=== PATIENT | female | born 1980 | race Caucasian/White ===

== ENCOUNTER 2018-07-19 21:24 | Emergency (ER) | payer OTHER ==
[2018-07-19] MEDS ORDERED: DEXAMETHASONE 10 MG/ML VIAL ONE (21:58)
[2018-07-19] MEDS ORDERED: METOCLOPRAMIDE 10 MG/2mL INJ ONE (21:59)
[2018-07-19] MEDS ORDERED: DIPHENHYDRAMINE 50 MG/ML VIAL ONE (21:59)
[2018-07-19] MEDS ORDERED: NA CHLORIDE 0.9% 1,000 ML ONE (21:59)
--- NOTE | 2018-07-19 22:15 | EDPHYS ---
Physician Documentation [facility] Name: Fatou Pugh Age: 38 yrs Sex: Female : 1980 Arrival Date: 07/19/2018 Time: 21:25 Bed Treatment Private MD: ED Physician Nadeem Anderson HPI: 07/19 22:04 This 38 yrs old Female presents to ER via Unassigned with complaints of jr8 Migraine. 22:04 The patient complains of pain to the diffuse. Onset: The symptoms/episode jr8 began/occurred gradually, 1 week(s) ago, and became persistent. Associated signs and symptoms: Pertinent positives: nausea, Photophobia vomiting. Severity of symptoms: At its worst the pain was moderate, in the emergency department the pain is unchanged. Headache History: Denies prior headaches. The symptoms are alleviated by nothing. the symptoms are aggravated by movement, stress. The patient has not experienced similar symptoms in the past. The patient has not recently seen a physician. 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 - Social history:: Smoking status: Patient/guardian denies using tobacco. - Ebola Screening: : No symptoms or risks identified at this time. ROS: 22:04 Constitutional: Negative for fever, chills, and weight loss. jr8 22:04 ENT: Positive for rhinorrhea, sinus congestion, sore throat. 22:04 Abdomen/GI: Positive for nausea and vomiting, diarrhea, Negative for abdominal pain, constipation, abdominal cramps, abdominal distension. 22:04 Neuro: Positive for headache. Exam: 22:04 Constitutional: This is a well developed, well nourished patient who is awake, alert, jr8 and in no acute distress. Eyes: Pupils equal round and reactive to light, extra-ocular motions intact. Lids and lashes normal. Conjunctiva and sclera are non-icteric and not injected. Cornea within normal limits. Periorbital areas with no swelling, redness, or edema. ENT: Nares patent. No nasal discharge, no septal abnormalities noted. Tympanic membranes are normal and external auditory canals are clear. Oropharynx with no redness, swelling, or masses, exudates, or evidence of obstruction, uvula midline. Mucous membranes moist. Neck: Trachea midline, no thyromegaly or masses palpated, and no cervical lymphadenopathy. Supple, full range of motion without nuchal rigidity, or vertebral point tenderness. No Meningismus. Cardiovascular: Regular rate and rhythm with a normal S1 and S2. No gallops, murmurs, or rubs. Normal PMI, no JVD. No pulse deficits. Respiratory: Lungs have equal breath sounds bilaterally, clear to auscultation and percussion. No rales, rhonchi or wheezes noted. No increased work of breathing, no retractions or nasal flaring. Abdomen/GI: Soft, non-tender, with normal bowel sounds. No distension or tympany. No guarding or rebound. No evidence of tenderness throughout. Back: No spinal tenderness. No costovertebral tenderness. Full range of motion. Skin: Warm, dry with normal turgor. Normal color with no rashes, no lesions, and no evidence of cellulitis. MS/ Extremity: Pulses equal, no cyanosis. Neurovascular intact. Full, normal range of motion. Neuro: Awake and alert, GCS 15, oriented to person, place, time, and situation. Cranial nerves II-XII grossly intact. Motor strength 5/5 in all extremities. Sensory grossly intact. Cerebellar exam normal. Normal gait. Vital Signs: 21:40 BP 115 / 73; Pulse 82; Resp 16 S; Temp 98.6(O); Pulse Ox 99% on R/A; Weight 71.67 kg bb (R); Height 5 ft. 0 in. (152.40 cm) (R); Pain 5/10; 07/20 02:26 BP 106 / 73; Pulse 70; Resp 16 S; Temp 98.7(O); Pulse Ox 100% on R/A; bb 07/19 21:40 Body Mass Index 30.86 (71.67 kg, 152.40 cm) bb MDM: 07/19 21:28 Patient medically screened. jr8 22:04 Data reviewed: vital signs, nurses notes. Data interpreted: Pulse oximetry: on room air jr8 is 100 %. Interpretation: normal. Counseling: I had a detailed discussion with the patient and/or guardian regarding: the historical points, exam findings, and any diagnostic results supporting the discharge/admit diagnosis, the need for outpatient follow up, a family practitioner, to return to the emergency department if symptoms worsen or persist or if there are any questions or concerns that arise at home. Response to treatment: the patient's symptoms have markedly improved after treatment, patient is well hydrated. 07/19 21:28 Order name: IV; Complete Time: : jr8 Administered Medications: 21:40 Drug: NS 0.9% 1000 ml Route: IV; Rate: 1000 ml; Site: right antecubital; bb 22:40 Follow up: IV Status: Completed infusion; IV Intake: 1000ml bb 21:40 Drug: Reglan 10 mg Route: IVP; Site: right antecubital; bb 22:31 Follow up: Response: No adverse reaction; Pain is decreased bb 21:42 Drug: Decadron - Dexamethasone 10 mg Route: IVP; Site: right antecubital; bb 22:31 Follow up: Response: No adverse reaction; Pain is decreased bb 22:00 Drug: Benadryl 25 mg Route: IVP; Site: right antecubital; bb 22:31 Follow up: Response: No adverse reaction; Pain is decreased bb Disposition: 07/20 07:55 Co-signature as Attending Physician, Nadeem Anderson MD I agree with the assessment and susy plan of care. Disposition: 07/19/18 22:15 Discharged to Home. Impression: Migraine without aura, intractable, Acute upper respiratory infection, unspecified. - Condition is Stable. - Discharge Instructions: Migraine Headache, Upper Respiratory Infection, Adult. - Prescriptions for Fioricet 50- 325-40 mg Oral tablet - take 2 tablet by ORAL route every 4 hours as needed not to exceed 6 tablets per 24hrs; 20 tablet. Prednisone 20 mg Oral Tablet - take 1 tablet by ORAL route once daily for 5 days; 5 tablet. Tessalon Perles 100 mg Oral Capsule - take 1 capsule by ORAL route every 8 hours As needed; 15 capsule. Zithromax Z- Aleksandr 250 mg Oral Tablet - take 1 tablet by ORAL route as directed for 5 days Day 1 - take two (2) tablets one time. Day 2, 3, 4 , 5 take one (1) tablet once daily.; 6 tablet. - Medication Reconciliation Form, Thank You Letter, Antibiotic Education, Prescription Opioid Use form. - Follow up: Private Physician; When: 2 - 3 days; Reason: Recheck today's complaints, Continuance of care, Re-evaluation by your physician. - Problem is new. - Symptoms have improved. Signatures: Nadeem Anderson MD MD cha Ballard, Brenda RN RN Lee Licea PA PA jr8 Corrections: (The following items were deleted from the chart) 02:27 07/19 22:15 07/19/2018 22:15 Discharged to Home. Impression: Migraine without aura, bb intractable; Acute upper respiratory infection, unspecified. Condition is Stable. Forms are Medication Reconciliation Form, Thank You Letter, Antibiotic Education, Prescription Opioid Use. Follow up: Private Physician; When: 2 - 3 days; Reason: Recheck today's complaints, Continuance of care, Re-evaluation by your physician. Problem is new. Symptoms have improved. jr8
--- NOTE | 2018-07-20 02:28 | ER ---
Nurse's Notes [facility] Name: Fatou Pugh Age: 38 yrs Sex: Female : 1980 Arrival Date: 07/19/2018 Time: 21:25 Bed Treatment Private MD: Diagnosis: Migraine without aura, intractable;Acute upper respiratory infection, unspecified Presentation: 07/19 21:30 Presenting complaint: Patient states: she has been feeling sick for a week now she has bb a headache, stuffy nose, then Sat and Sun she had nausea, vomiting, and diarrhea which went away, she also has a sore throat. Transition of care: patient was not received from another setting of care. Onset of symptoms was July 13, 2018. Risk Assessment: Do you want to hurt yourself or someone else? Patient reports no desire to harm self or others. Initial Sepsis Screen: Does the patient meet any 2 criteria? No. Patient's initial sepsis screen is negative. Does the patient have a suspected source of infection? No. Patient's initial sepsis screen is negative. Care prior to arrival: None. 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 - Social history:: Smoking status: Patient/guardian denies using tobacco. - Ebola Screening: : No symptoms or risks identified at this time. Screenin:30 Abuse screen: Denies threats or abuse. Nutritional screening: No deficits noted. bb Tuberculosis screening: No symptoms or risk factors identified. Fall Risk None identified. Assessment: 21:30 General: Appears in no apparent distress. uncomfortable, Behavior is calm, cooperative. bb General: Reports pt reports she has been sick for a week and now has a headache she can't get rid of. Pain: Complains of pain in headache Pain currently is 5 out of 10 on a pain scale. Neuro: Level of Consciousness is awake, alert, obeys commands, Oriented to person, place, time, situation, Speech is normal. Cardiovascular: No deficits noted. Respiratory: Respiratory effort is even, unlabored, Respiratory pattern is regular. GI: No signs and/or symptoms were reported involving the gastrointestinal system. Derm: Skin is pink, warm \T\ dry. Musculoskeletal: Circulation, motion, and sensation intact. 22:31 Reassessment: Patient is alert, oriented x 3, equal unlabored respirations, skin bb warm/dry/pink. pt states pain has improved now 1/10 Patient states feeling better. 23:47 Reassessment: pt appears to be sleeping, eyes closed, resp unlabored, awaiting ride bb home for discharge. 07/20 01:38 Reassessment: pt appears to be sleeping, eyes closed, resp unlabored awaiting ride home.bb 02:25 Reassessment: Patient is alert, oriented x 3, equal unlabored respirations, skin bb warm/dry/pink. pt verbalized understanding of and agrees to plan of care discharge instructions given pt ambulated with steady gait to exit Patient states feeling better. Vital Signs: 07/19 21:40 BP 115 / 73; Pulse 82; Resp 16 S; Temp 98.6(O); Pulse Ox 99% on R/A; Weight 71.67 kg bb (R); Height 5 ft. 0 in. (152.40 cm) (R); Pain 5/10; 07/20 02:26 BP 106 / 73; Pulse 70; Resp 16 S; Temp 98.7(O); Pulse Ox 100% on R/A; bb 07/19 21:40 Body Mass Index 30.86 (71.67 kg, 152.40 cm) ED Course: 07/19 21:25 Patient arrived in ED. ds1 21:28 Lee Pantoja PA is PHCP. jr8 21:28 Nadeem Anderson MD is Attending Physician. jr8 21:30 Patient has correct armband on for positive identification. Bed in low position. Call bb light in reach. Side rails up X 1. Pulse ox on. NIBP on. Warm blanket given. Pillow given. 21:30 Inserted saline lock: 20 gauge in right antecubital area, using aseptic technique. bb ,using aseptic technique. by Lee TSAI. 22:23 Lucero Garcia, RN is Primary Nurse. bb 22:25 Triage completed. bb 22:26 Arm band placed on Patient placed in an exam room, on a stretcher, on pulse oximetry. bb 23:48 No provider procedures requiring assistance completed. bb 07/20 02:27 IV discontinued, intact, bleeding controlled, No redness/swelling at site. Pressure bb dressing applied. Administered Medications: 07/19 21:40 Drug: NS 0.9% 1000 ml Route: IV; Rate: 1000 ml; Site: right antecubital; bb 22:40 Follow up: IV Status: Completed infusion; IV Intake: 1000ml bb 21:40 Drug: Reglan 10 mg Route: IVP; Site: right antecubital; bb 22:31 Follow up: Response: No adverse reaction; Pain is decreased bb 21:42 Drug: Decadron - Dexamethasone 10 mg Route: IVP; Site: right antecubital; bb 22:31 Follow up: Response: No adverse reaction; Pain is decreased bb 22:00 Drug: Benadryl 25 mg Route: IVP; Site: right antecubital; bb 22:31 Follow up: Response: No adverse reaction; Pain is decreased bb Intake: 22:40 IV: 1000ml; Total: 1000ml. bb Outcome: 22:15 Discharge ordered by MD. bermudez 23:48 Condition: stable bb 07/20 02:27 Discharged to home ambulatory. bb Discharge instructions given to patient, Instructed on discharge instructions, follow up and referral plans. medication usage, Demonstrated understanding of instructions, follow-up care, medications, Prescriptions given X 02:27 Prescriptions given X 4. bb 02:27 Patient left the ED. bb Signatures: Krystal Snow ds1 Lucero Garcia RN RN bb Lee Pantoja PA PA jr8 Corrections: (The following items were deleted from the chart) 07/19 22:28 22:26 BP 115 / 73; Pulse 82bpm; Resp 16bpm; Spontaneous; Pulse Ox 99% RA; Temp 98.6F bb Oral; 71.67 kg Reported; Height 5 ft. 0 in. Reported; BMI: 30.8; Pain 5/10; bb
[2018-07-20 03:07] VITALS: BP 106/73; TEMP 98.7; O2SAT 100
== END 2018-07-20 02:27 | disposition home or self-care (01) ==
LOC: ER 21:24
DX: G43.019 Migraine without aura, intractable, without status migrainosus (principal); J06.9 Acute upper respiratory infection, unspecified; Z88.1 Allergy status to other antibiotic agents; Z88.0 Allergy status to penicillin
CPT/HCPCS: 96361; 96374; 96375; 99284; J1100; J2765; J7030

== ENCOUNTER 2018-11-16 06:20 | Emergency (ER) | payer OTHER ==
--- OUTSIDE RECORDS SUMMARY | 2018-11-16 06:22 | XMS REPORT | Continuity of Care Document ---
:1980 Author Organization [facility] Care Team Providers Name Role Phone [facility] Unavailable Unavailable Problems Problem Status Onset Classification Date Comments Source Date Reported Kidney stone Active Problem 10/23/2018 [facility] Kidney Resolved Problem 10/23/2018 [facility] Migraine Active Problem 10/23/2018 [facility] Simple Active Problem 10/23/2018 [facility] obesity [facility] Medications Medication Details Route Status Patient Ordering Order Source Instructions Provider Date amitriptyline 50 50 mg, PO, Active [facility] mg oral tablet Bedtime, # 019 [facility] 30 tab, 3 Refill(s), Pharmacy: [facility][id number] eletriptan 40 MG 40 mg=1 Active [facility] Oral Tablet tab, PO, 019 [facility] [Relpax] Daily, PRN for migraine headache, may repeat dose once in 2 hours, X 30 day, # 12 tab, 1 Refill(s), Pharmacy: [facility] #[id number] Acetaminophen 1 cap, PO, Inactive [facility] 300 MG / Q6H, 0 019 Neuro butalbital 50 MG Refill(s) / Caffeine 40 MG Oral Capsule [Fioricet] Amitriptyline 50 mg, PO, Inactive [facility] Bedtime, 0 019 [facility] Refill(s) Allergies, Adverse Reactions, Alerts Substance Category Reaction Severity Reaction Status Date Comments Source type Reported cephalospori Assertion anaphylacti Drug Active [facility] ns c shock allergy Neuro penicillins Assertion Anaphylacti Drug Active [facility] c shock allergy Neuro amoxicillin< Assertion anaphylaxis Severe Drug Active Patient [facility] sup>1</sup> allergy Comment: Neuro allergic to all Penicillin s Immunizations No Data Provided for This Section Results No Data Provided for This Section Pathology Reports No Data Provided for This Section Diagnostic Reports No Data Provided for This Section Consultation Notes No Data Provided for This Section Discharge Summaries No Data Provided for This Section History and Physicals No Data Provided for This Section Vital Signs Vital Sign Value Date Comments Source BMI Calculated 30.86 10/20/2018 [facility] Weight 74.091 10/20/2018 [facility] Height 154.94 cm 10/20/2018 [facility] Respitory Rate 16 10/20/2018 [facility] Heart Rate 88 10/20/2018 [facility] Systolic (mm Hg) 124 10/20/2018 [facility] Diastolic (mm Hg) 84 10/20/2018 [facility] Encounters Location Location Encounter Encounter Reason Attending ADM DC Status Source Details Type Number For Provider Date Date Visit [facility] [id number] [place] 10/20 10/21 [facility] /2018 [facility] [place] [facility] [id number] [place] 11/24 [facility] [place] Procedures Procedure Code Date Perfomer Comments Source section [id number] [facility] Nephrectomy [id number] [facility] Assessment and Plan No Data Provided for This Section Plan of Care No Data Provided for This Section Social History Social History Date Source Social History TypeResponse 10/20/2018 [facility] Alcohol Current, Type Beer.1 Smoking Status Never smoker; Exposure to Tobacco Smoke Unable to obtain; Cigarette Smoking Last 365 Days Unable to obtain; Reg Smoking Cessation Counseling No entered on: 10/20/18 11 beer every other wk Family History No Data Provided for This Section Advance Directives No Data Provided for This Section Functional Status No Data Provided for This Section
--- NOTE | 2018-11-16 08:11 | RAD REPORT ---
EXAM DESCRIPTION: CT - Stone Protocol - 11/16/2018 6:44 am CLINICAL HISTORY: Flank pain. FLANK PAIN COMPARISON: Stone Protocol dated 10/27/2016; CTSTONE PROTOCOL dated 07/27/2011 TECHNIQUE: Axial images were obtained without oral or IV contrast. Lack of contrast limits solid org an and vascular assessment. The [id number] spans the entirety of the system partially obscuring uppermost abdomen and lung bases. Coronal reformatted images were obtained and reviewed. All CT scans are performed using dose optimization technique as appropriate and may include automated exposure control or mA/KV adjustment according to patient size. FINDINGS: The lower lung aggarwal are clear. Imaged portions of the liver and spleen show no suspicious findings on non-contrast imaging. The panc reas and adrenal glands are normal. No pathologic lymphadenopathy in the abdomen or pelvis. Mild right hydronephrosis and hydroureter is present. An obstructing calculus is not identified. No l eft-sided stone or hydronephrosis seen. No bowel obstruction, free air, free fluid or abscess. Normal appendix noted. No significant bony abnormality. IMPRESSION: Mild right hydronephrosis and hydroureter is seen without obstructing calculus present.
--- NOTE | 2018-11-16 08:21 | EDPHYS ---
Physician Documentation [facility] Name: Fatou Pugh Age: 38 yrs Sex: Female : 1980 Arrival Date: 11/16/2018 Time: 06:30 Bed 6 Private MD: ED Physician Juan Burnette HPI: 11/16 06:53 This 38 yrs old Female presents to ER via Ambulatory with complaints of Flank pm1 Pain. 06:53 The patient complains of pain in the right low back. The pain does not radiate. Onset: pm1 The symptoms/episode began/occurred today, at 03:00. Modifying factors: The symptoms are alleviated by nothing. the symptoms are aggravated by nothing. Associated signs and symptoms: The patient has no apparent associated signs or symptoms. The patient has experienced similar episodes in the past, a few times. Historical: - Allergies: 06:34 CEPHALOSPORINS; cc3 06:34 PENICILLINS; cc3 - PMHx: 06:34 Kidney stones; Migraines; cc3 - PSHx: 06:34 right kidney; ; uterine ablation; Tonsillectomy; left knee; cc3 - Immunization history:: Adult Immunizations up to date. - Social history:: Smoking status: Patient/guardian denies using tobacco, never smoked. - Ebola Screening: : No symptoms or risks identified at this time. ROS: 06:53 Constitutional: Negative for fever, chills, and weight loss, Abdomen/GI: Negative for pm1 abdominal pain, nausea, vomiting, diarrhea, and constipation. 06:53 Cardiovascular: Negative for chest pain, palpitations, and edema, Respiratory: Negative for shortness of breath, cough, wheezing, and pleuritic chest pain, : Negative for injury, bleeding, discharge, and swelling. No dysuria MS/Extremity: Negative for injury and deformity, Skin: Negative for injury, rash, and discoloration, Neuro: Negative for headache, weakness, numbness, tingling, and seizure. 06:53 Back: Positive for flank pain, on the right. Exam: 06:53 Constitutional: This is a well developed, well nourished patient who is awake, alert, pm1 and in no acute distress. Head/Face: Normocephalic, atraumatic. Chest/axilla: Normal chest wall appearance and motion. Nontender with no deformity. No lesions are appreciated. Cardiovascular: Regular rate and rhythm with a normal S1 and S2. No gallops, murmurs, or rubs. Normal PMI, no JVD. No pulse deficits. Respiratory: Lungs have equal breath sounds bilaterally, clear to auscultation and percussion. No rales, rhonchi or wheezes noted. No increased work of breathing, no retractions or nasal flaring. Abdomen/GI: Soft, non-tender, with normal bowel sounds. No distension or tympany. No guarding or rebound. No evidence of tenderness throughout. 06:53 Skin: Warm, dry with normal turgor. Normal color with no rashes, no lesions, and no evidence of cellulitis. MS/ Extremity: Pulses equal, no cyanosis. Neurovascular intact. Full, normal range of motion. 06:53 Back: pain, that is mild, of the right low back, normal spinal alignment noted. 06:53 Neuro: Orientation: is normal, Motor: is normal, moves all fours. Vital Signs: 06:30 BP 118 / 82; Pulse 103; Resp 16 S; Temp 98.7(TE); Pulse Ox 100% on R/A; Weight 74.84 kg cc3 (R); Height 5 ft. 1 in. (154.94 cm); Pain 4/10; 08:25 BP 133 / 95; Pulse 79; Resp 16; Temp 98.4; Pulse Ox 97% on R/A; hb 06:30 Body Mass Index 31.18 (74.84 kg, 154.94 cm) cc3 MDM: 06:32 Patient medically screened. pm1 07:01 Data reviewed: vital signs. Data interpreted: Pulse oximetry: on room air is 100 %. pm1 Interpretation: normal. 08:16 Counseling: I had a detailed discussion with the patient and/or guardian regarding: the pm1 historical points, exam findings, and any diagnostic results supporting the discharge/admit diagnosis, radiology results, the need for outpatient follow up, to return to the emergency department if symptoms worsen or persist or if there are any questions or concerns that arise at home. 11/16 06:35 Order name: Urine Dipstick--Ancillary (enter results) eb 11/16 06:35 Order name: Urine --Ancillary (enter results) eb 11/16 06:32 Order name: CT Stone Protocol; Complete Time: 08:15 pm1 11/16 06:32 Order name: Urine Dipstick-Ancillary (obtain specimen); Complete Time: 06:39 pm1 11/16 06:32 Order name: Urine Test (obtain specimen); Complete Time: 06:39 pm1 Administered Medications: No medications were administered Disposition: 11/16/18 08:20 Discharged to Home. Impression: Calculus of ureter. - Condition is Stable. - Discharge Instructions: Kidney Stones, Dietary Guidelines to Help Prevent Kidney Stones. - Prescriptions for Zofran 4 mg Oral Tablet - take 1 tablet by ORAL route every 8 hours As needed; 20 tablet. - Medication Reconciliation Form, Thank You Letter, Antibiotic Education, Prescription Opioid Use form. - Follow up: Emergency Department; When: As needed; Reason: Worsening of condition. Follow up: Private Physician; When: 2 - 3 days; Reason: Recheck today's complaints, Continuance of care, Re-evaluation by your physician. - Problem is new. - Symptoms have improved. Addendum: 11/21/2018 07:25 Co-signature as Attending Physician, Juan Burnette MD I agree with the assessment and w a plan of care. Signatures: Dispatcher [employer] EDMS Isidoro Morel NP HEEL BOOM OPERATOR pm1 Karen Silva RN RN Juan Roach MD MD wa Cordel, Charlene cc3 Corrections: (The following items were deleted from the chart) 11/16 08:26 08:20 11/16/2018 08:20 Discharged to Home. Impression: Calculus of ureter. Condition is hb Stable. Discharge Instructions: Kidney Stones, Dietary Guidelines to Help Prevent Kidney Stones. Prescriptions for Zofran 4 mg Oral Tablet - take 1 tablet by ORAL route every 8 hours As needed; 20 tablet. and Forms are Medication Reconciliation Form, Thank You Letter, Antibiotic Education, Prescription Opioid Use. Follow up: Emergency Department; When: As needed; Reason: Worsening of condition. Follow up: Private Physician; When: 2 - 3 days; Reason: Recheck today's complaints, Continuance of care, Re-evaluation by your physician. Problem is new. Symptoms have improved. pm1
--- NOTE | 2018-11-16 08:21 | ER ---
Nurse's Notes [facility] Name: Fatou Pugh Age: 38 yrs Sex: Female : 1980 Arrival Date: 11/16/2018 Time: 06:30 Bed 6 Private MD: Diagnosis: Calculus of ureter Presentation: 11/16 06:31 Presenting complaint: Patient states: Sudden right flank pain that started at 0300H cc3 this morning. Transition of care: patient was not received from another setting of care. Onset of symptoms. Risk Assessment: Do you want to hurt yourself or someone else? Patient reports no desire to harm self or others. Initial Sepsis Screen: Does the patient meet any 2 criteria? HR > 90 bpm. Does the patient have a suspected source of infection? No. Patient's initial sepsis screen is negative. Care prior to arrival: None. 06:31 Method Of Arrival: Ambulatory cc3 06:31 Acuity: BUCKY 3 cc3 Triage Assessment: 06:35 General: Appears in no apparent distress. uncomfortable, Behavior is calm, cooperative, cc3 appropriate for age. Pain: Complains of pain in right flank. EENT: No signs and/or symptoms were reported regarding the EENT system. Neuro: Level of Consciousness is awake, alert, obeys commands, Oriented to person, place, time, situation, Appropriate for age. Cardiovascular: Denies chest pain, Heart tones S1 S2 present Capillary refill < 3 seconds Patient's skin is warm and dry. Respiratory: Airway is patent Respiratory effort is even, unlabored, Respiratory pattern is regular, symmetrical. GI: Abdomen is flat, Bowel sounds present X 4 quads. Abd is soft and non tender X 4 quads. : No signs and/or symptoms were reported regarding the genitourinary system. Derm: Skin is intact, is healthy with good turgor, Skin is pink, warm \T\ dry. normal. Musculoskeletal: Circulation, motion, and sensation intact. Range of motion: intact in all extremities. Historical: - Allergies: 06:34 CEPHALOSPORINS; cc3 06:34 PENICILLINS; cc3 - PMHx: 06:34 Kidney stones; Migraines; cc3 - PSHx: 06:34 right kidney; ; uterine ablation; Tonsillectomy; left knee; cc3 - Immunization history:: Adult Immunizations up to date. - Social history:: Smoking status: Patient/guardian denies using tobacco, never smoked. - Ebola Screening: : No symptoms or risks identified at this time. Screenin:39 Abuse screen: Denies threats or abuse. Denies injuries from another. Nutritional cc3 screening: No deficits noted. Tuberculosis screening: No symptoms or risk factors identified. Fall Risk Ambulatory Aid- None/Bed Rest/Nurse Assist (0 pts). Gait- Normal/Bed Rest/Wheelchair (0 pts) Mental Status- Oriented to own ability (0 pts). Assessment: 06:30 General: see triage assessment. cc3 06:51 Reassessment: Patient appears in no apparent distress at this time. Patient and/or cc3 family updated on plan of care and expected duration. Pain level reassessed. Patient is alert, oriented x 3, equal unlabored respirations, skin warm/dry/pink. Patient came back from CT scan department, awaiting result. 07:30 Reassessment: Patient appears in no apparent distress at this time. Patient and/or hb family updated on plan of care and expected duration. Pain level reassessed. Patient is alert, oriented x 3, equal unlabored respirations, skin warm/dry/pink. Awaiting radiology results at this time. Vital Signs: 06:30 BP 118 / 82; Pulse 103; Resp 16 S; Temp 98.7(TE); Pulse Ox 100% on R/A; Weight 74.84 kg cc3 (R); Height 5 ft. 1 in. (154.94 cm); Pain 4/10; 08:25 BP 133 / 95; Pulse 79; Resp 16; Temp 98.4; Pulse Ox 97% on R/A; hb 06:30 Body Mass Index 31.18 (74.84 kg, 154.94 cm) cc3 ED Course: 06:30 Patient arrived in ED. fc 06:31 Roxie Lin is Primary Nurse. cc3 06:31 Isidoro Morel NP is PHCP. pm1 06:31 Juan Burnette MD is Attending Physician. pm1 06:32 Triage completed. cc3 06:39 Arm band placed on right wrist. Patient notified of wait time. cc3 06:39 Patient has correct armband on for positive identification. Placed in gown. Bed in low cc3 position. Call light in reach. Side rails up X 1. Pulse ox on. NIBP on. 06:44 CT Stone Protocol In Process Unspecified. EDMS 06:52 CT completed. Patient tolerated procedure well. Patient moved to CT WALKED. Patient eh moved back from CT. 07:00 Report given to SHEELA Jones. cc3 07:30 No provider procedures requiring assistance completed. Patient did not have IV access hb during this emergency room visit. 08:25 Karen Silva, RN is Primary Nurse. hb Administered Medications: No medications were administered Outcome: 08:20 Discharge ordered by MD. pm1 08:26 Discharged to home ambulatory. hb 08:26 Condition: stable 08:26 Discharge instructions given to patient, Instructed on discharge instructions, follow up and referral plans. medication usage, Demonstrated understanding of instructions, follow-up care, medications, Prescriptions given X 1. 08:26 Patient left the ED. hb Signatures: Dispatcher [employer] EDDE Vj Bueno Nimo Hope RN RN fc Marinas, Patrick, WEB SITE DEVELOPER WEB SITE DEVELOPER pm1 Karen Silva RN RN hb Cordel, Charlene cc3
[2018-11-16 08:42] VITALS: BP 133/95; TEMP 98.4; O2SAT 97
[2018-11-16 09:36] LABS: Urine Blood 2+ (NEG); Urine Glucose NEGATIVE (NEG); Urine Protein 3+ (NEG); Urine Specific Gravity 1.025 (1.005-1.030); Urine pH 6.5 (5.0-7.0)
== END 2018-11-16 08:26 | disposition home or self-care (01) ==
LOC: ER 06:20
DX: N20.1 Calculus of ureter (principal); Z88.0 Allergy status to penicillin; Z88.8 Allergy status to other drugs, medicaments and biological substances
CPT/HCPCS: 74176; 76377; 81003; 81025; 99284